=== PATIENT | female | born 1940 | race Caucasian/White ===

== ENCOUNTER 2016-10-15 09:11 | Day surgery (SDC) | payer BC ==
--- NOTE | ~2016-10-15 | EGD ---
EGD REPORT [facility] [address] [place] [address] NAME: SHARI DE LOS SANTOS : [birth year] STATUS : REG [facility]#: [id number] AGE: 76 ADM/REG DATE : 10/15/16 MR#: [id number] REPORT SERV DATE: 10/15/16 DICTATED BY: GUANAKO BASSETT DATE: 10/15/16 REPORT STATUS : Draft TRANSCRIBED BY: [facility] DATE: 10/15/16 Endoscopy Center Patient Name: Shari De Los Santos Date of : 1940 Attending MD: GUANAKO BASSETT, Procedure Date No Time: 10/15/2016 Procedure: Colonoscopy Indications: Screening for colorectal malignant neoplasm Referring MD: PRESTON DEVINE Medicines: Monitored Anesthesia Care Complications: No immediate complications. Estimated blood loss: None. Procedure: Pre-Anesthesia Assessment: - ASA Grade Assessment: III - A patient with severe systemic disease. After I obtained informed consent, the scope was passed under direct vision. Throughout the procedure, the patient's blood pressure, pulse, and oxygen saturations were monitored continuously. The CF [id number] was introduced through the anus and advanced to the cecum, identified by appendiceal orifice and ileocecal valve. The colonoscopy was performed without difficulty. The patient tolerated the procedure well. The quality of the bowel preparation was good. Findings: The perianal and digital rectal examinations were normal. A few small-mouthed diverticula were found in the sigmoid colon. Internal hemorrhoids were found during retroflexion and were Grade I (internal hemorrhoids that do not prolapse). The exam was otherwise without abnormality on direct and retroflexion views. Impression: - Diverticulosis in the sigmoid colon. - Internal hemorrhoids. - The examination was otherwise normal on direct and retroflexion views. Recommendation: - Patient has a contact number available for emergencies. The signs and symptoms of potential delayed complications were discussed with the patient. Return to normal activities tomorrow. Written discharge instructions were provided to the patient. - Return to previous diet. - Repeat colonoscopy in 10 years for screening purposes. EGD REPORT [address] [address] NAME: SHARI DE LOS SANTOS : [birth year] STATUS : REG [facility]#: [id number] AGE: 76 ADM/REG DATE : 10/15/16 MR#: [id number] REPORT SERV DATE: 10/15/16 DICTATED BY: GUANAKO BASSETT DATE: 10/15/16 REPORT STATUS : Draft TRANSCRIBED BY: [employer] DATE: 10/15/16 Procedure Code(s): --- Professional --- 03011, Colonoscopy, flexible, proximal to splenic flexure; diagnostic, with or without collection of specimen(s) by brushing or washing, with or without colon decompression (separate procedure) Diagnosis Code(s): --- Professional --- K64.0, First degree hemorrhoids K57.30, Diverticulosis of large intestine without perforation or abscess without bleeding Z12.11, Encounter for screening for malignant neoplasm of colon CPT copyright 2013 [employer]. All rights reserved. The codes documented in this report are preliminary and upon hand grinder review may be revised to meet current compliance requirements. GUANAKO BASSETT, 10/15/2016 10:21 AM Number of Addenda: 0 Note Initiated On: 10/15/2016 10:00 AM Scope Withdrawal Time 0 hours 7 minutes 56 seconds [address] [place] [address]
[~2016-10-15 09:11] MED LIST: ASAB PO; CALTRA600D PO; ERY-TAB250 MG PO; ESTRACE1 MG PO; IMDUR30 PO; K-TABS10 MEQ PO; L40 PO; LOP25 PO; PLAVIX PO; PREM625 PO; ZOCOR20 PO
== END 2016-10-15 23:59 | disposition home or self-care (01) ==
LOC: DMU 09:11
PROVIDERS: Internal Medicine Gastroenterology
PROC: 0DJD8ZZ Inspection of Lower Intestinal Tract, Via Natural or Artificial Opening Endoscopic (ICD-10-PCS; principal; 2016-10-15 10:30)
DX: Z12.11 Encounter for screening for malignant neoplasm of colon (principal); K57.30 Diverticulosis of large intestine without perforation or abscess without bleeding; K64.0 First degree hemorrhoids; I10 Essential (primary) hypertension; I25.10 Atherosclerotic heart disease of native coronary artery without angina pectoris; E78.00 Pure hypercholesterolemia, unspecified; Z95.5 Presence of coronary angioplasty implant and graft; Z79.82 Long term (current) use of aspirin; Z79.02 Long term (current) use of antithrombotics/antiplatelets; Z79.2 Long term (current) use of antibiotics; Z79.818 Long term (current) use of other agents affecting estrogen receptors and estrogen levels; Z79.899 Other long term (current) drug therapy